=== PATIENT | female | born 1995 | race Caucasian/White ===

== ENCOUNTER 2019-01-30 11:32 | Observation (INO) ==
[2019-01-30 11:40] LABS: Bilirubin,Urine Small (Negative); Blood,Urine Negative (Negative); Clarity,Urine Clear (Clear); Color,Urine Dark Yellow (Yellow); Glucose,Urine (UA) Normal (Normal); Ketones,Urine Negative (Negative); Leukocyte Esterase,Urine Trace (Negative); Nitrite,Urine Negative (Negative); Protein,Urine Negative (Neg-Trace); Specific Gravity,Urine 1.017 (1.010-1.025); Urobilinogen,Urine Normal (Normal)
[2019-01-30 11:43] LABS: Hyaline Casts,Urine None Seen per lpf (None-Few); RBC,Urine 0-3 per hpf (0-3); WBC,Urine 0-3 per hpf (0-3)
[2019-01-30] MEDS ORDERED: Acetaminophen 325 MG TABLET PO ONE (11:55)
[2019-01-30 11:56] LABS: Amphetamine Screen,Urine Negative ng/mL (Cutoff=1000); Barbiturate Screen,Urine Negative ng/mL (Cutoff=200); Benzodiazepines Screen,Urine Negative ng/mL (Cutoff=200); Cannabinoid Screen,Urine Negative ng/mL (Cutoff = 50); Cocaine Screen,Urine Negative ng/mL (Cutoff= 300); Opiate Screen,Urine Negative ng/mL (Cutoff=300); Phencyclidine Screen,Urine Negative ng/mL (Cutoff=25)
[2019-01-30 12:00] LABS: Squamous Epithelial Cell,Urine Moderate per lpf (None-Few)
[2019-01-30 12:02] LABS: Bacteria,Urine Moderate per hpf (None-Few)
[2019-01-30] MEDS ORDERED: Betamethasone Acet/SodPhos 6 MG/ML MDV IM SCH (17:15)
[2019-01-30] MEDS ORDERED: Ringers Solution, Lactated 1,000 ML IVC ONE (17:16)
[2019-01-30] MEDS ORDERED: Ringers Solution, Lactated 1,000 ML IVC SCH (17:30)
--- NOTE | 2019-01-30 20:21 | OB/GYN Progress Note ---
Date of Encounter: 01/30/19 Time of Encounter: 20:17 - Assessment and Plan (1) 35 weeks gestation of Current Visit: Yes Status: Acute (2) Uterine contractions Current Visit: Yes Status: Acute Patient was monitored on labor and delivery over multiple hours, initially made cervical change from 1 cm to 2 cm to then 3 cm/75% effaced and -2 station. Given LR bolus and betamethasone course initiated due to pre-37 weeks gestation, No further change in the subsequent 3 hours. Patient discharged home with labor and when to return to triage precautions. Patient verbalizes understanding, patient also understanding needs to return in 1700 tomorrow for betamethasone injection (3) Encounter for suspected PROM, with rupture of membranes not found Current Visit: Yes Status: Acute Speculum exam shows normal thick white discharge of , negative pooling, negative nitrazine, negative ferning Subjective - Subjective Interval history: 35+6 weeks gestation presented to triage earlier today with complaints of contraction. Patient states she is having contractions from last night and early this morning, also complains of leaking of fluid. Reports good movement, denies vaginal bleeding. Antepartum ROS: loss of fluid, movement normal, contractions, no vaginal bleeding Objective - Vital Signs Vital Signs: Intake and Output 01/30/19 01/30/19 01/30/19 07:59 15:59 23:59 Other: Weight 102 kg Patient Weight 01/30/19 23:59 Weight 102 kg - Exam FHR: auscultation normal, category 1 FHR comments: Baseline 130 Abdomen: Present: soft, gravid Cervical dilation: Initially 1/50/-3 - Labs Labs: Abnormal lab results Urine Bilirubin Small (Negative) H 01/30/19 11:15 Ur Leukocyte Esterase Trace (Negative) H 01/30/19 11:15 Ur Squamous Epith Cells Moderate per lpf (None-Few) H 01/30/19 11:15 Urine Bacteria Moderate per hpf (None-Few) H 01/30/19 11:15 Ur Culture Indicated? YES (NO) A 01/30/19 11:15
== END 2019-01-30 20:27 | disposition home or self-care (01) ==
LOC: 1NENULAB
PROVIDERS: ADMIT Advanced Practice Midwife; ATTEND Advanced Practice Midwife

== ENCOUNTER 2020-02-21 19:52 | Inpatient (IN) ==
[~2020-02-21 19:52] MED LIST: Famotidine 20 MG/2 ML VIAL IVP PRN; Metoclopramide 10 MG/2 ML VIAL IVP PRN; Naloxone 0.4 MG/ML INJ IVP PRN; Ondansetron 4 MG/2 ML VIAL IVP PRN
[2020-02-21 19:59] VITALS: BP 117/77
[2020-02-21] MEDS ORDERED: Ringers Solution, Lactated 1,000 ML IVC SCH (20:00)
[2020-02-21 20:27] LABS: Basophils % 0.2 %; Eosinophils # 0.2 K/mcL (0.0-0.6); Eosinophils % 2.3 %; Hematocrit 38.5 % (35.3-44.9); Hemoglobin 12.8 g/dL (11.5-15.4); Immature Granulocytes % 0.3 % (0-4); Lymphocytes # 2.9 K/mcL (0.6-4.6); Mean Corpuscular HGB Conc 33.2 g/dL (31.6-35.5); Mean Corpuscular Hemoglobin 28.6 pg (28.0-33.3); Mean Corpuscular Volume 85.9 fL (83.0-100.0); Mean Platelet Volume 12.6 fL (9.4-12.4); Monocytes # 0.8 K/mcL (0.0-1.3); Monocytes % 8.3 %; Neutrophils # 5.7 K/mcL (1.6-8.9); Platelet Count 216 K/mcL (140-400); Red Blood Count 4.48 M/mcL (3.82-4.97); Red Cell Distribution Width 13.6 % (11.5-14.5); Segmented Neutrophils % 58.9 %; White Blood Count 9.7 K/mcL (4.3-11.1)
[2020-02-21] MEDS ORDERED: miSOPROStoL 100 MCG TABLET PO ONE (20:31)
[2020-02-21 20:55] LABS: Amphetamine Screen,Urine Negative ng/mL (Cutoff=1000); Barbiturate Screen,Urine Negative ng/mL (Cutoff=200); Benzodiazepines Screen,Urine Positive ng/mL (Cutoff=200); Cannabinoid Screen,Urine Positive ng/mL (Cutoff = 50); Cocaine Screen,Urine Negative ng/mL (Cutoff= 300); Opiate Screen,Urine Negative ng/mL (Cutoff=300); Phencyclidine Screen,Urine Negative ng/mL (Cutoff=25)
[2020-02-21] MEDS ORDERED: Acetaminophen 325 MG TABLET PO ONE (23:57)
[2020-02-22] MEDS: miSOPROStoL 100 MCG TABLET PO SCH ×5 (00:13→14:49)
[2020-02-22] MEDS ORDERED: Oxytocin 20 units/ LR 1000 mL 20 UNIT/1,000 ML BAG IVC ONE (01:48)
[2020-02-22] MEDS: *HR* FentaNYL (PF) 100 MCG/2 ML VIAL IVP PRN ×2 (03:04→15:02)
[2020-02-22] MEDS ORDERED: Nicotine 21 MG PATCH.TD24 TD SCH (09:30)
[2020-02-22] MEDS ORDERED: miSOPROStoL 100 MCG TABLET PO SCH ×2 (13:15→14:09)
[2020-02-22] MEDS ORDERED: *HR* Buprenorphine HCl 8 MG TAB.SUBL SL SCH (21:00)
== END 2020-02-22 19:17 | disposition home or self-care (01) | DRG 543 ==
LOC: 1NENULAB
PROVIDERS: ADMIT Obstetrics & Gynecology; ATTEND Obstetrics & Gynecology